=== PATIENT | female | born 2000 | race American Indian/Alaskan Native ===

== ENCOUNTER 2020-09-18 19:50 | Emergency (ER) | payer SELFPAY ==
--- NOTE | 2020-09-18 20:44 | EDM.PDOC ---
ED HPI GENERAL MEDICAL PROBLEM - General Chief Complaint: Headache Stated Complaint: HEADACHE 1 WEEK Time Seen by Provider: 09/18/20 19:59 Source of Information: Reports: Patient History Limitations: Reports: No Limitations - History of Present Illness INITIAL COMMENTS - FREE TEXT/NARRATIVE: Ms. Pond is a very pleasant 20-year-old woman who now presents to the ED with a complaint of a bitemporal headache, sharp in character, along with a nonproductive cough without dyspnea, rhinorrhea, and anosmia, all since 09/10/2020. Her headache comes and goes, typically lasting a few hours, recurring up to 7 times per day. She has not identified any modifiers. No photophobia or phonophobia. No visual changes, such as blurry vision, wavy lines, or flashing lights. No associated nausea. No neurologic symptoms, such as tingling, numbness, or weakness. No prior similar symptoms, and the patient denies a history of headaches. While she has anosmia, she denies having ageusia. The patient states that she has been taking Tylenol and ibuprofen, which have not helped at all, however, she does feel better after sleeping. The patient has never been tested for COVID-19. Here in the ED, the patient's initial BP is found to be slightly elevated at 143/82, otherwise, she is hemodynamically stable, afebrile, saturating 100% on room air. Prior to Saturday, the patient denies having a recent fever, chills, sore throat, ear pain, nasal or sinus congestion, cough, dyspnea, chest pain, palpitations, nausea, vomiting, constipation, diarrhea, abdominal pain, urinary symptoms, recent weight gain or weight loss, recent bloody bowel movements or black bowel movements, recent joint aches, headaches, or rashes. Her LMP was 08/28/2020. Patient does not have a PCP. She has not received an influenza vaccine this season. - Related Data Allergies Allergy/AdvReac Type Severity Reaction Status Date / Time No Known Allergies Allergy Verified 09/18/20 20:00 Home Meds: Home Meds . [No Known Home Meds] 09/18/20 [History] Past Medical History - Past Surgical History HEENT Surgical History: Reports: Eye Surgery (right hordeolum surgery), Oral Surgery (dental extractions) Social & Family History - Tobacco Use Tobacco Use Status *Q: Never Tobacco User - Caffeine Use Caffeine Use: Reports: Tea - Alcohol Use Alcohol Use History: No - Recreational Drug Use Recreational Drug Use: Yes Drug Use in Last 12 Months: Yes Recreational Drug Type: Reports: Marijuana/Hashish (smokes daily) - Living Situation & Occupation Living situation: Reports: Single, with Family Occupation: Unemployed ED ROS GENERAL - Review of Systems Review Of Systems: Comprehensive ROS is negative, except as noted in HPI. ED EXAM, GENERAL - Physical Exam Exam: See Below Exam Limited By: No Limitations General Appearance: Alert, WD/WN, No Apparent Distress Eye Exam: Bilateral Eye: EOMI, Normal Inspection Ears: Normal External Exam, Normal Canal, Hearing Grossly Normal, Normal TMs Nose: Normal Inspection, Normal Mucosa (no visible nasal mucosal edema), No Blood Throat/Mouth: Normal Inspection, Normal Lips, Normal Teeth, Normal Gums, Normal Oropharynx, Normal Voice, No Airway Compromise Head: Atraumatic, Normocephalic Neck: Normal Inspection, Supple, Non-Tender, Full Range of Motion. No: Lymphadenopathy (L), Lymphadenopathy (R) Respiratory/Chest: No Respiratory Distress, Lungs Clear, Normal Breath Sounds, No Accessory Muscle Use. No: Decreased Breath Sounds, Rhonchi, Wheezing, Stridor, Prolonged Expiration Cardiovascular: Normal Peripheral Pulses, Regular Rate, Rhythm, No Edema, No Gallop, No JVD, No Murmur, No Rub Peripheral Pulses: 3+: Radial (L), Radial (R) GI/Abdominal: Normal Bowel Sounds, Soft, Non-Tender, No Organomegaly, No Distention, No Abnormal Bruit, No Mass Back Exam: Normal Inspection, Full Range of Motion, NT Extremities: Normal Inspection, Normal Range of Motion, No Pedal Edema, Normal Capillary Refill Neurological: Alert, Oriented, CN II-XII Intact, Normal Cognition, No Motor/Sensory Deficits Psychiatric: Normal Affect Skin Exam: Warm, Dry, Intact, Normal Color, No Rash Course - Vital Signs Last Recorded V/S: Last Vital Signs Temp 37.1 C 09/18/20 19:57 Pulse 62 09/18/20 19:57 Resp 20 09/18/20 19:57 BP 143/82 H 09/18/20 19:57 Pulse Ox 100 09/18/20 19:57 - Orders/Labs/Meds Orders: Active Orders 24 hr Category Date Time Status Chest 2V [CR] Stat Exams 09/18/20 20:34 Taken Isolation [COMM] Routine Oth 09/18/20 20:38 Ordered Labs: Laboratory Tests 09/18/20 09/18/20 09/18/20 Range/Units 20:57 20:57 20:57 WBC 4.37 (3.98-10.04) K/mm3 RBC 4.63 (3.98-5.22) M/mm3 Hgb 12.5 (11.2-15.7) gm/dl Hct 40.3 (34.1-44.9) % MCV 87.0 (79.4-94.8) fl MCH 27.0 (25.6-32.2) pg MCHC 31.0 L (32.2-35.5) g/dl RDW Std Deviation 47.9 H (36.4-46.3) fL Plt Count 288 (182-369) K/mm3 MPV 9.8 (9.4-12.3) fl Neutrophils % (Manual) 69 H (40-60) % Band Neutrophils % 1 (0-10) % Lymphocytes % (Manual) 26 (20-40) % Atypical Lymphs % 0 % Monocytes % (Manual) 1 L (2-10) % Eosinophils % (Manual) 2 (0.7-5.8) % Basophils % (Manual) 1 (0.1-1.2) Platelet Estimate Adequate RBC Morph Comment Normal D-Dimer, Quantitative 0.24 (0.19-0.50) mg/L Sodium 141 (136-145) mEq/L Potassium 3.7 (3.5-5.1) mEq/L Chloride 106 (98-107) mEq/L Carbon Dioxide 27 (21-32) mEq/L Anion Gap 11.7 (5-15) BUN 6 L (7-18) mg/dL Creatinine 0.8 (0.55-1.02) mg/dL Est Cr Clr Drug Dosing 105.01 mL/min Estimated GFR (MDRD) > 60 (>60) mL/min BUN/Creatinine Ratio 7.5 L (14-18) Glucose 97 (74-106) mg/dL Calcium 8.9 (8.5-10.1) mg/dL Total Bilirubin 0.2 (0.2-1.0) mg/dL AST 13 L (15-37) U/L ALT 17 (14-59) U/L Alkaline Phosphatase 82 (46-116) U/L C-Reactive Protein < 0.2 (<1.0) mg/dL Total Protein 8.2 (6.4-8.2) g/dl Albumin 3.8 (3.4-5.0) g/dl Globulin 4.4 gm/dL Albumin/Globulin Ratio 0.9 L (1-2) Influenza Type A RNA (NEGATIVE) Influenza Type B RNA (NEGATIVE) SARS-CoV-2 RNA (ROSITA) (NEGATIVE) 09/18/20 Range/Units 21:03 WBC (3.98-10.04) K/mm3 RBC (3.98-5.22) M/mm3 Hgb (11.2-15.7) gm/dl Hct (34.1-44.9) % MCV (79.4-94.8) fl MCH (25.6-32.2) pg MCHC (32.2-35.5) g/dl RDW Std Deviation (36.4-46.3) fL Plt Count (182-369) K/mm3 MPV (9.4-12.3) fl Neutrophils % (Manual) (40-60) % Band Neutrophils % (0-10) % Lymphocytes % (Manual) (20-40) % Atypical Lymphs % % Monocytes % (Manual) (2-10) % Eosinophils % (Manual) (0.7-5.8) % Basophils % (Manual) (0.1-1.2) Platelet Estimate RBC Morph Comment D-Dimer, Quantitative (0.19-0.50) mg/L Sodium (136-145) mEq/L Potassium (3.5-5.1) mEq/L Chloride (98-107) mEq/L Carbon Dioxide (21-32) mEq/L Anion Gap (5-15) BUN (7-18) mg/dL Creatinine (0.55-1.02) mg/dL Est Cr Clr Drug Dosing mL/min Estimated GFR (MDRD) (>60) mL/min BUN/Creatinine Ratio (14-18) Glucose (74-106) mg/dL Calcium (8.5-10.1) mg/dL Total Bilirubin (0.2-1.0) mg/dL AST (15-37) U/L ALT (14-59) U/L Alkaline Phosphatase (46-116) U/L C-Reactive Protein (<1.0) mg/dL Total Protein (6.4-8.2) g/dl Albumin (3.4-5.0) g/dl Globulin gm/dL Albumin/Globulin Ratio (1-2) Influenza Type A RNA Negative (NEGATIVE) Influenza Type B RNA Negative (NEGATIVE) SARS-CoV-2 RNA (ROSITA) Positive H (NEGATIVE) - Re-Assessments/Exams Free Text/Narrative Re-Assessment/Exam: 09/18/20 20:39 As above, the patient has had a sharp bitemporal headache coming and going, james ng with a nonproductive cough, rhinorrhea, and anosmia since 09/10/2020. No associated symptoms to suggest a migraine etiology. She has been taking Tylenol and ibuprofen which have not helped, however, sleep does. No recent fever. She coughs frequently here in the ED, otherwise, her physical exam is completely unremarkable. I am concerned that she may have COVID-19. I have ordered a work-up that includes several blood tests, an influenza swab, a swab for the SARS-CoV-2 virus, and a chest x-ray. Because her [id number] is negative, she does not meet criterion for an emergency CT of the head without contrast. 09/18/20 21:55 Two-view chest radiograph appears to be grossly normal. The cardiac silhouette is within normal limits. No pulmonary vascular congestion. No pleural eff usions. No focal infiltrate. No pneumothorax. Formal read per the Radiologist pending. The patient's CBC, CMP, CRP, and D-dimer are all within normal limits. Her influenza swab returned negative. Her swab for the SARS-CoV-2 virus has returned positive. 09/18/20 22:05 Test results discussed with the patient. I explained that all of her symptoms, including her headache, are likely due to COVID-19. Unfortunately, she is not a candidate for either bamlamivimab or Regeneron. She can purchase an [id number] pulse oximeter to monitor her oxygen saturation, although I do not think it is necessary in her case. She may take kwoa-brf-xuwqiue Tylenol or ibuprofen as needed for discomfort. I stressed the importance of her quarantining until she tests negative, ideally twice, and I also informed her that it is a near-certainty that her family members are positive, as well, and that they therefore also need to quarantine until they test negative. Departure - Departure Time of Disposition: 22:07 Disposition: Home, Self-Care 01 Condition: Good Clinical Impression: COVID-19 - Discharge Information *PRESCRIPTION DRUG MONITORING PROGRAM REVIEWED*: Not Applicable *COPY OF PRESCRIPTION DRUG MONITORING REPORT IN PATIENT IRINA: Not Applicable Referrals: PCP,None [Primary Care Provider] - Forms: ED Department Discharge Additional Instructions: You were seen in the emergency room for a headache, cough, runny nose, and loss of smell since 09/10/2020. Work-up in the ER included several blood tests, and influenza swab, a swab for the SARS-CoV-2 virus, and a chest x-ray. Your entire work-up was unremarkable, with the exception of your swab for the SARS-CoV-2 virus, which returned positive, indicating that you have COVID-19. Based on your history, physical exam, and ER tests, it appears that all of your symptoms, including your headache, are due to COVID-19. As discussed, unfortunately, there are no current medical treatments available to you. You may take goil-bid-ceowbdw Tylenol or ibuprofen as needed for discomfort. As discussed, it is imperative that you strictly quarantine until you tested negative for the virus, preferably twice. As discussed, it is a near certainty that the family members that you live with are also positive for the virus, as it is so contagious. Your family members, therefore, also need to strictly quarantine until they tested negative for the virus, preferably twice. If any other problems, please do not hesitate to return to the ER. Sepsis Event Note (ED) - Evaluation Sepsis Screening Result: No Definite Risk - Focused Exam Vital Signs: Vital Signs Temp Pulse Resp BP Pulse Ox 09/18/20 19:57 37.1 C 62 20 143/82 H 100 - My Orders Last 24 Hours: My Active Orders 09/18/20 20:34 Chest 2V [CR] Stat 09/18/20 20:38 Isolation [COMM] Routine - Assessment/Plan Last 24 Hours: My Active Orders 09/18/20 20:34 Chest 2V [CR] Stat 09/18/20 20:38 Isolation [COMM] Routine
[2020-09-18 21:55] LABS: CORONAVIRUS COVID-19 NAA POSITIVE (NEGATIVE)
--- NOTE | 2020-09-19 08:37 | CR ---
Chest: 2 views of the chest were obtained. Comparison: No prior chest imaging is available. Heart size and mediastinum are normal. Lungs are clear with no acute parenchymal change. Minimal scoliosis is present within the spine. Impression: 1. Nothing acute is seen on 2 view chest x-ray. Diagnostic code #1 I agree with preliminary report from [facility], finalized on 09/18/20, 10:36 PM [employer]
== END 2020-09-18 22:25 | disposition home or self-care (01) ==
LOC: JD.ED 19:50
DX: U07.1 COVID-19 (principal)
CPT/HCPCS: 0240U; 36415; 71046; 80053; 85007; 85027; 85379; 86140; 99283; 99282

== ENCOUNTER 2021-08-21 09:49 | Emergency (ER) | payer SELFPAY ==
[2021-08-21] MEDS ORDERED: Sodium Chloride 0.9% 10 ML Syringe FLUSH PRN (11:17)
[2021-08-21] MEDS ORDERED: Famotidine 20 MG/2 ML SDV IVPUSH ONE (11:18)
--- NOTE | 2021-08-21 11:54 | EDM.PDOC ---
ED HPI GENERAL MEDICAL PROBLEM - General Chief Complaint: Abdominal Pain Stated Complaint: ABDOMINAL PAIN Time Seen by Provider: 08/21/21 11:11 Source of Information: Reports: Patient, RN Notes Reviewed History Limitations: Reports: No Limitations - History of Present Illness INITIAL COMMENTS - FREE TEXT/NARRATIVE: Patient is a 20-year-old female presenting to the emergency department with complaints of a 1 week history of epigastric pain as well as associated nausea, vomiting, diarrhea. Reports pain is a aching localized to her epigastrium. Denies any history of acid reflux. Reports 3-4 loose stools per day, generally associated with eating. States his stools are not watery but softer than normal. Reports that she vomits after most times that she eats, however she is able to keep fluids down. She has lost proximate 10 pounds in the last month. States prior to a week ago she did have problems with nausea and diarrhea off and on. The epigastric pain will resolve, however always seems to recur. Eating makes the discomfort worse. She also complains of vaginal itching and thick whitish vaginal discharge. Patient feels she has a yeast infection. Denies any respiratory complaints, fever, or chills. She has had no previous abdominal surgeries and denies any chronic medical conditions. She does not have a primary care provider. Left Abdomen Pain Score (Numeric/FACES): 8 - Related Data Allergies Allergy/AdvReac Type Severity Reaction Status Date / Time No Known Allergies Allergy Verified 08/21/21 10:20 Home Meds: Home Meds Omeprazole 20 mg PO DAILY #30 maxim. 08/21/21 [Rx] Ondansetron [Zofran ODT] 4 mg PO Q6H PRN #10 tab.dis 08/21/21 [Rx] Sucralfate [Carafate] 1 gm PO ACBED 10 Days #40 tab 08/21/21 [Rx] metroNIDAZOLE [Flagyl] 500 mg PO Q12H 7 Days #14 tab 08/21/21 [Rx] Past Medical History - Past Health History Medical/Surgical History: Denies Medical/Surgical History - Infectious Disease History Infectious Disease History: Reports: Novel Coronavirus - Past Surgical History HEENT Surgical History: Reports: Eye Surgery, Oral Surgery Social & Family History - Family History Family Medical History: No Pertinent Family History - Tobacco Use Tobacco Use Status *Q: Never Tobacco User - Caffeine Use Caffeine Use: Reports: None - Recreational Drug Use Recreational Drug Use: Yes Drug Use in Last 12 Months: Yes Recreational Drug Type: Reports: Marijuana/Hashish Recreational Drug Use Frequency: Daily - Living Situation & Occupation Living situation: Reports: Single, with Family Occupation: Unemployed ED ROS GENERAL - Review of Systems Review Of Systems: See Below Constitutional: Reports: Decreased Appetite. Denies: Fever, Chills HEENT: Reports: No Symptoms Respiratory: Reports: No Symptoms. Denies: Shortness of Breath, Cough Cardiovascular: Reports: No Symptoms Endocrine: Reports: No Symptoms GI/Abdominal: Reports: Abdominal Pain (epigastric), Diarrhea, Decreased Appetite, Nausea, Vomiting. Denies: Black Stool, Bloody Stool, Hematemesis : Reports: Other (thick, white vaginal discharge). Denies: Dysuria Musculoskeletal: Reports: No Symptoms Skin: Reports: No Symptoms Neurological: Reports: No Symptoms Psychiatric: Reports: No Symptoms Hematologic/Lymphatic: Reports: No Symptoms Immunologic: Reports: No Symptoms ED EXAM, GI/ABD - Physical Exam Exam: See Below Exam Limited By: No Limitations General Appearance: Alert, WD/WN, No Apparent Distress Respiratory/Chest: No Respiratory Distress, Lungs Clear, Normal Breath Sounds, No Accessory Muscle Use, Chest Non-Tender Cardiovascular: Normal Peripheral Pulses, Regular Rate, Rhythm, No Edema, No Gallop, No JVD, No Murmur, No Rub GI/Abdominal Exam: Normal Bowel Sounds, Soft, No Organomegaly, No Distention, No Abnormal Bruit, No Mass, Pelvis Stable, Tender (localized epigastric). No: Guarding, Rigid, Rebound Neurological: Alert, Oriented, CN II-XII Intact, Normal Cognition, Normal Gait, Normal Reflexes, No Motor/Sensory Deficits Psychiatric: Normal Affect, Normal Mood Skin Exam: Warm, Dry, Intact, Normal Color, No Rash Course - Vital Signs Last Recorded V/S: Last Vital Signs Temp 98.7 F 08/21/21 10:15 Pulse 83 08/21/21 11:36 Resp 16 08/21/21 11:36 BP 139/102 H 08/21/21 11:36 Pulse Ox 100 08/21/21 11:36 - Orders/Labs/Meds Orders: Active Orders 24 hr Category Date Time Status Peripheral IV Care [RC] . DIRECTED Care 08/21/21 11:18 Active CULTURE URINE [MREF] Stat Lab 08/21/21 11:38 Received Sodium Chloride 0.9% [Saline Flush] Med 08/21/21 11:17 Active 10 ml FLUSH ASDIRECTED PRN Peripheral IV Insertion Adult [OM.PC] Stat Oth 08/21/21 11:16 Ordered Medication Orders Sodium Chloride (Sodium Chloride 0.9% 10 Ml Syringe) 10 ml FLUSH ASDIRECTED PRN PRN Reason: Keep Vein Open Last Admin: 08/21/21 11:34 Dose: 10 ml Documented by: VASU Labs: Laboratory Tests 08/21/21 08/21/21 08/21/21 Range/Units 11:29 11:29 11:38 WBC 7.56 (3.98-10.04) K/mm3 RBC 5.01 (3.98-5.22) M/mm3 Hgb 14.0 D (11.2-15.7) gm/dl Hct 44.2 (34.1-44.9) % MCV 88.2 (79.4-94.8) fl MCH 27.9 (25.6-32.2) pg MCHC 31.7 L (32.2-35.5) g/dl RDW Std Deviation 51.4 H (36.4-46.3) fL Plt Count 306 (182-369) K/mm3 MPV 9.4 (9.4-12.3) fl Neut % (Auto) 86.0 H (34.0-71.1) % Lymph % (Auto) 9.3 L (19.3-51.7) % [place] % (Auto) 4.5 L (4.7-12.5) % Eos % (Auto) 0 L (0.7-5.8) Baso % (Auto) 0.1 (0.1-1.2) % Neut # (Auto) 6.50 H (1.56-6.13) K/mm3 Lymph # (Auto) 0.70 L (1.18-3.74) K/mm3 [place] # (Auto) 0.34 (0.24-0.36) K/mm3 Eos # (Auto) 0.00 L (0.04-0.36) K/mm3 Baso # (Auto) 0.01 (0.01-0.08) K/mm3 Sodium 141 (136-145) mEq/L Potassium 4.4 (3.5-5.1) mEq/L Chloride 105 (98-107) mEq/L Carbon Dioxide 26 (21-32) mEq/L Anion Gap 14.4 (5-15) BUN 9 (7-18) mg/dL Creatinine 0.8 (0.55-1.02) mg/dL Est Cr Clr Drug Dosing TNP Estimated GFR (MDRD) > 60 (>60) mL/min BUN/Creatinine Ratio 11.3 L (14-18) Glucose 90 (70-99) mg/dL Calcium 9.2 (8.5-10.1) mg/dL Total Bilirubin 0.4 (0.2-1.0) mg/dL AST 11 L (15-37) U/L ALT 15 (14-59) U/L Alkaline Phosphatase 67 (46-116) U/L C-Reactive Protein <0.2 (<1.0) mg/dL Total Protein 8.3 H (6.4-8.2) g/dl Albumin 4.4 (3.4-5.0) g/dl Globulin 3.9 gm/dL Albumin/Globulin Ratio 1.1 (1-2) Lipase 97 (73-393) U/L Urine Color Other H (Yellow) Urine Appearance Cloudy H (Clear) Urine pH 6.0 (5.0-8.0) Ur Specific [place] > or = 1.030 (1.005-1.030) Urine Protein 1+ H (Negative) Urine Glucose (UA) Negative (Negative) Urine Ketones 3+ H (Negative) Urine Occult Blood 2+ H (Negative) Urine Nitrite Negative (Negative) Urine Bilirubin 1+ H (Negative) Urine Urobilinogen 1.0 (0.2-1.0) Ur Leukocyte Esterase Trace H (Negative) Urine RBC 0-5 (0-5) /hpf Urine WBC 0-5 (0-5) /hpf Ur Epithelial Cells 0-5 (0-5) /hpf Amorphous Sediment Few H (NOT SEEN) /hpf Urine Bacteria Few (FEW) /hpf Urine Mucus Moderate H (FEW) /hpf Meds: Medications Generic Name Dose Route Start Last Admin Trade Name Freq PRN Reason Stop Dose Admin Sodium Chloride 10 ml 08/21/21 11:17 11/15/21 11:34 Sodium Chloride 0.9% 10 Ml Syringe FLUSH 10 ml ASDIRECTED PRN Administration Keep Vein Open Discontinued Medications Generic Name Dose Route Start Last Admin Trade Name Bernard PRN Reason Stop Dose Admin Al Hydroxide/Mg Hydroxide 30 0 ml 08/21/21 12:37 08/21/21 12:43 ml/ Lidocaine HCl 15 ml PO 08/21/21 12:38 45 ml ONETIME ONE Administration Famotidine 20 mg 08/21/21 11:18 08/21/21 11:34 Famotidine 20 Mg/2 Ml Sdv IVPUSH 08/21/21 11:19 20 mg ONETIME ONE Administration - Re-Assessments/Exams Free Text/Narrative Re-Assessment/Exam: She is a 20-year-old female presenting to the emergency department complaints of a 1 week history of recurrent epigastric discomfort with diarrhea and occasional vomiting. Also reports thick white vaginal discharge and vaginal itching. On exam, she does have localized tenderness to epigastrium. Exam is otherwise unremarkable. Ordered blood work and urinalysis. Will give Pepcid 20 mg IV. We will plan to do pelvic exam with wet prep. 08/21/21 1235 Hematology is unremarkable. Alkaline phosphatase, liver enzymes, and lipase are normal. Urinalysis is negative for infection. Pelvic exam completed. There was a small amount of thick, whitish discharge. Otherwise unremarkable. I have sent wet prep. Patient continues to complain of epigastric discomfort, will give a GI cocktail to see if this improves her symptoms. 08/21/21 13:30 Patient symptoms improved significantly after the GI cocktail. Wet prep negative for yeast but does show few clue cells. Given her symptoms, I will treat for bacterial vaginosis with Flagyl. I also start her on omeprazole, Carafate, and Zofran for likely gastritis. Will send referral to Dr. Joann Chauhan for follow-up. Recommend following up towards the end of the week and returning for worsening symptoms. She verbalized understanding of this. Discharge instructions as documented. Departure - Departure Time of Disposition: 13:31 Disposition: Home, Self-Care 01 Condition: Good Clinical Impression: Bacterial vaginosis Abdominal pain Qualifiers: Abdominal location: epigastric Qualified Code(s): R10.13 - Epigastric pain - Discharge Information *PRESCRIPTION DRUG MONITORING PROGRAM REVIEWED*: No *COPY OF PRESCRIPTION DRUG MONITORING REPORT IN PATIENT [place]INA: No Prescriptions: Sucralfate [Carafate] 1 gm PO ACBED 10 Days #40 tab Omeprazole 20 mg PO DAILY #30 capsule. Instructions: Bacterial Vaginosis, [id number], Abdominal Pain, Adult Referrals: PCP,None [Primary Care Provider] - Forms: ED Department Discharge Additional Instructions: Take the prescribed medications as ordered. Avoid spicy, greasy, or acidic foods as this will likely worsen your epigastric pain. Do not consume alcohol in any form while on these medications. Call to schedule follow-up appointment with Dr. Joann Chauhan towards the end of the week. Return to ER for any new or worsening symptoms. Sepsis Event Note (ED) - Evaluation Sepsis Screening Result: No Definite Risk - Focused Exam Vital Signs: Vital Signs Temp Pulse Resp BP Pulse Ox 08/21/21 11:36 83 16 139/102 H 100 08/21/21 10:15 98.7 F 86 18 145/102 H 96 - My Orders Last 24 Hours: My Active Orders 08/21/21 11:16 Peripheral IV Insertion Adult [OM.PC] Stat 08/21/21 11:17 Sodium Chloride 0.9% [Saline Flush] 10 ml FLUSH ASDIRECTED PRN 08/21/21 11:18 Peripheral IV Care [RC] . DIRECTED 08/21/21 11:38 CULTURE URINE [MREF] Stat - Assessment/Plan Last 24 Hours: My Active Orders 08/21/21 11:16 Peripheral IV Insertion Adult [OM.PC] Stat 08/21/21 11:17 Sodium Chloride 0.9% [Saline Flush] 10 ml FLUSH ASDIRECTED PRN 08/21/21 11:18 Peripheral IV Care [RC] . DIRECTED 08/21/21 11:38 CULTURE URINE [MREF] Stat
[2021-08-21] MEDS ORDERED: Alum Hydrox/Mag Hydrox/Simeth 30 ML, Lidocaine 2% 15 ML PO ONE ×2 (12:37)
== END 2021-08-21 13:55 | disposition home or self-care (01) ==
LOC: JD.ED 09:49
DX: N76.0 Acute vaginitis (principal); B96.89 Other specified bacterial agents as the cause of diseases classified elsewhere; Z79.899 Other long term (current) drug therapy; Z86.16 Personal history of COVID-19
CPT/HCPCS: 36415; 80053; 81001; 83690; 85025; 86140; 87086; 87210; 87808; 96374; 99284; A9270; J3490